=== PATIENT | male | born 1980 | race Caucasian/White ===

== ENCOUNTER 2024-07-07 18:31 | Emergency (ER) | payer BC ==
[2024-07-07] MEDS: Ondansetron 4 MG/2 ML SDV IVPUSH STA (19:12)
[2024-07-07] MEDS: Morphine 4 MG/ML Syringe IVPUSH STA ×2 (19:12→20:22)
[2024-07-07] MEDS: Piperacillin/Tazobactam 4.5 GM in Sodium Chloride 0.9% 100 ML IV STA (19:14)
[2024-07-07 19:35] LABS: BASOPHILS ABSOLUTE AUTO 0.02 K/uL (0.00-0.20); BASOPHILS PERCENT AUTO 0.3 % (0.0-1.0); EOSINOPHILS ABSOLUTE AUTO 0.03 K/uL (0.00-0.45); EOSINOPHILS PERCENT AUTO 0.5 % (0.0-6.0); HEMATOCRIT 43.5 % (42.0-52.0); HEMOGLOBIN 14.6 g/dL (14.0-18.0); IMMATURE GRAN ABSOLUTE AUTO 0.01 K/uL (0.00-0.05); IMMATURE GRAN PERCENT AUTO 0.2 % (0.0-0.4); LYMPHOCYTES ABSOLUTE AUTO 1.08 K/uL (1.00-4.80); LYMPHOCYTES PERCENT AUTO 17.1 % (24.0-44.0); MEAN CORPUSCULAR HEMOGLOBIN 29.1 pg (28.0-32.0); MEAN CORPUSCULAR HGB CONC 33.6 g/dL (32.0-36.0); MEAN CORPUSCULAR VOLUME 86.7 fL (83.0-99.0); MONOCYTES ABSOLUTE AUTO 0.44 K/uL (0.00-0.80); NEUTROPHILS ABSOLUTE AUTO 4.74 K/uL (1.80-7.70); NEUTROPHILS PERCENT AUTO 74.9 % (41.0-71.0); PLATELET COUNT,PLT 171 K/uL (150-400); RED BLOOD CELL COUNT 5.02 M/uL (4.52-5.90); WHITE BLOOD CELL COUNT,WBC 6.32 K/uL (3.9-11.3)
[2024-07-07 19:46] LABS: INR 1.02 (0.86-1.11)
[2024-07-07 19:59] LABS: A/G RATIO 1.4 (0.9-1.6); ALBUMIN 4.6 g/dL (3.4-5.0); BILIRUBIN TOTAL 2.2 mg/dL (0.2-1.0); CALCIUM 9.7 mg/dL (8.5-10.1); CARBON DIOXIDE,CO2 28.1 mmol/L (21.0-32.0); CREATININE 0.9 mg/dL (0.8-1.3); EST CRCL DRUG DOSING (CG) 122.07 mL/min; POTASSIUM,K 3.8 mmol/L (3.5-5.1)
[2024-07-07 20:01] LABS: LACTIC ACID 1.7 mmol/L (0.4-2.0); MAGNESIUM 1.7 mg/dL (1.8-2.4)
[2024-07-07] MEDS: Ketorolac 30 MG/ML SDV IVPUSH STA (20:22)
[2024-07-07] MEDS: Magnesium Sulfate/Water Premix 2 GM in Premix Bag 1 BAG IV STA (21:26)
[2024-07-07 22:31] LABS: APPEARANCE,URINE SLT CLOUDY; BILIRUBIN,URINE NEGATIVE (NEGATIVE); COLOR,URINE YELLOW; GLUCOSE,URINE NEGATIVE (NEGATIVE); KETONES,URINE 40 mg/dL (NEGATIVE); LEUKOCYTE ESTERASE,URINE NEGATIVE (NEGATIVE); NITRITE,URINE NEGATIVE (NEGATIVE); OCCULT BLOOD,URINE NEGATIVE (NEGATIVE); PH,URINE 5.5 (5.0-8.0); PROTEIN,URINE NEGATIVE (NEGATIVE)
[2024-07-07] MEDS: Magnesium Sulfate/Water Premix 50 ML ONE (23:31)
[2024-07-08] MEDS: oxyCODONE 5 MG Tab PO STA (00:07)
[2024-07-08 00:10] VITALS: BP 117/68; PULSE 59
[2024-07-08] MEDS: Iopamidol 755 Mg/ML 100 ML Bottle IVPUSH ONE (07:38)
== END 2024-07-08 00:09 | disposition home or self-care (01) ==
LOC: MW.ED 18:31
DX: K59.00 Constipation, unspecified (principal); K80.20 Calculus of gallbladder without cholecystitis without obstruction; E83.42 Hypomagnesemia; R79.89 Other specified abnormal findings of blood chemistry; Z88.8 Allergy status to other drugs, medicaments and biological substances; Z75.8 Other problems related to medical facilities and other health care
CPT/HCPCS: 36415; 74177; 76705; 80053; 81003; 83605; 83690; 83735; 84484; 85025; 85610; 87040; 93005; 96365; 96367; 96375; 96376; 99284; A9270; J1885; J2270; J2405; J2543; J3475; J3490; Q9967; 93010; 99285

== ENCOUNTER 2024-07-14 12:17 | Day surgery (SDC) | payer BC ==
[2024-07-14] MEDS ORDERED: Propofol 200 MG/20 ML SDV ONE (12:28)
[2024-07-14] MEDS ORDERED: dexmedeTOMIDine HCl 200 MCG/2 ML SDV ONE (12:29)
[2024-07-14] MEDS: Lactated Ringers 1,000 ML IV SCH (12:50)
[2024-07-14] MEDS ORDERED: Lactated Ringers 1,000 ML IV SCH (14:45)
[2024-07-14 15:00] VITALS: BP 112/72; PULSE 57
== END 2024-07-14 15:06 | disposition home or self-care (01) ==
LOC: MW.SDS 12:17
PROVIDERS: ATTEND Surgery
DX: K29.50 Unspecified chronic gastritis without bleeding (principal); Z98.84 Bariatric surgery status; Z87.891 Personal history of nicotine dependence
CPT/HCPCS: 43239; J2704; J7120; J3490

== ENCOUNTER 2024-07-29 19:44 | Emergency (ER) | payer BC ==
[2024-07-29 20:22] LABS: BASOPHILS ABSOLUTE AUTO 0.03 K/uL (0.00-0.20); BASOPHILS PERCENT AUTO 0.6 % (0.0-1.0); EOSINOPHILS ABSOLUTE AUTO 0.13 K/uL (0.00-0.45); EOSINOPHILS PERCENT AUTO 2.5 % (0.0-6.0); HEMATOCRIT 41.3 % (42.0-52.0); HEMOGLOBIN 13.7 g/dL (14.0-18.0); IMMATURE GRAN ABSOLUTE AUTO 0.01 K/uL (0.00-0.05); IMMATURE GRAN PERCENT AUTO 0.2 % (0.0-0.4); LYMPHOCYTES ABSOLUTE AUTO 1.49 K/uL (1.00-4.80); LYMPHOCYTES PERCENT AUTO 28.4 % (24.0-44.0); MEAN CORPUSCULAR HEMOGLOBIN 29.1 pg (28.0-32.0); MEAN CORPUSCULAR HGB CONC 33.2 g/dL (32.0-36.0); MEAN CORPUSCULAR VOLUME 87.7 fL (83.0-99.0); MEAN PLATELET VOLUME 12.6 fL (9.4-12.4); MONOCYTES ABSOLUTE AUTO 0.35 K/uL (0.00-0.80); MONOCYTES PERCENT AUTO 6.7 % (0.0-8.0); NEUTROPHILS ABSOLUTE AUTO 3.23 K/uL (1.80-7.70); NEUTROPHILS PERCENT AUTO 61.6 % (41.0-71.0); PLATELET COUNT,PLT 179 K/uL (150-400); RED BLOOD CELL COUNT 4.71 M/uL (4.52-5.90); WHITE BLOOD CELL COUNT,WBC 5.24 K/uL (3.9-11.3)
[2024-07-29 20:38] VITALS: BP 133/81; PULSE 71
[2024-07-29 20:59] LABS: A/G RATIO 1.2 (0.9-1.6); ALANINE AMINOTRANSFERASE,ALT 88 IU/L (14-63); ALBUMIN 4.2 g/dL (3.4-5.0); ALKALINE PHOSPHATASE 132 U/L (46-116); ASPARTATE AMNIOTRANSFERASE,AST 136 IU/L (15-37); BILIRUBIN TOTAL 1.2 mg/dL (0.2-1.0); BLOOD UREA NITROGEN,BUN 15 mg/dL (7.0-18.0); CALCIUM 9.2 mg/dL (8.5-10.1); CARBON DIOXIDE,CO2 29.5 mmol/L (21.0-32.0); CHLORIDE,CL 103 mmol/L (98-107); ESTIMATED GFR 97 mL/min (>60); GLUCOSE RANDOM 96 mg/dL (74-106); LIPASE 38 U/L (16-77); PROTEIN TOTAL,TP 7.7 g/dL (6.4-8.2); SODIUM,NA 141 mmol/L (136-148)
[2024-07-29] MEDS: Ondansetron 4 MG Tab.DIS PO ONE (21:09)
[2024-07-29] MEDS: Acetaminophen/HYDROcodone 325-5 MG Tab PO ONE (21:09)
== END 2024-07-29 22:17 | disposition home or self-care (01) ==
LOC: MW.ED 19:44
DX: K80.50 Calculus of bile duct without cholangitis or cholecystitis without obstruction (principal); E66.9 Obesity, unspecified; Z88.1 Allergy status to other antibiotic agents
CPT/HCPCS: 36415; 80053; 83690; 85025; 99284; A9270

== ENCOUNTER 2024-08-04 06:38 | Day surgery (SDC) | payer BC ==
[~2024-08-04 06:38] MED LIST: ceFAZolin 2 GM in Sodium Chloride 0.9% 50 ML IV ONE
[2024-08-04] MEDS ORDERED: Metoclopramide 10 MG/2 ML SDV IVPUSH PRN (07:03)
[2024-08-04] MEDS ORDERED: Albuterol 0.083% 2.5 MG/3 ML Neb Soln NEB PRN (07:03)
[2024-08-04] MEDS ORDERED: fentaNYL 50 MCG/ML SDV IVPUSH PRN (07:03)
[2024-08-04] MEDS ORDERED: Naloxone 0.4 MG/ML SDV IVPUSH PRN (07:03)
[2024-08-04] MEDS ORDERED: Phenylephrine HCl In 0.9% NaCl 1 MG/10 ML Syringe IVPUSH PRN (07:03)
[2024-08-04] MEDS ORDERED: Water For Injection, Sterile 20 ML ONE (07:14)
[2024-08-04] MEDS ORDERED: Rocuronium Bromide 50 MG/5 ML Syringe ONE (07:14)
[2024-08-04] MEDS ORDERED: dexmedeTOMIDine HCl 200 MCG/2 ML SDV ONE (07:14)
[2024-08-04] MEDS ORDERED: fentaNYL 100 MCG/2 ML SDV ONE (07:14)
[2024-08-04] MEDS ORDERED: Propofol 200 MG/20 ML SDV ONE (07:14)
[2024-08-04] MEDS ORDERED: ceFAZolin 1 GM Vial ONE (07:16)
[2024-08-04] MEDS ORDERED: Bupivacaine 0.5% 10 ML SDV ONE (07:16)
[2024-08-04] MEDS ORDERED: Bupivacaine 0.25% 30 ML SDV ONE (07:19)
[2024-08-04] MEDS ORDERED: Ropivacaine 0.5% 5 MG/ML 30 ML SDV ONE (07:19)
[2024-08-04] MEDS ORDERED: Desflurane 240 ML Bottle ONE (07:23)
[2024-08-04] MEDS: Lactated Ringers 1,000 ML IV SCH (07:30)
[2024-08-04] MEDS: Scopalamine 1mg/3day Transdermal Patch TRDERM PRN (07:31)
[2024-08-04] MEDS ORDERED: ceFAZolin 2 GM Vial ONE (08:01)
[2024-08-04] MEDS ORDERED: Magnesium Sulfate (4.06 MEQ/ML) 5 GM/10 ML SDV ONE (08:18)
[2024-08-04] MEDS ORDERED: Ketamine HCL/NACL, ISO-OSM 50 MG/5 ML Syringe ONE (08:42)
[2024-08-04] MEDS ORDERED: Dexamethasone 4 MG/ML 5 ML MDV ONE (08:42)
[2024-08-04] MEDS ORDERED: Ondansetron 4 MG/2 ML SDV ONE (08:42)
[2024-08-04] MEDS ORDERED: Sugammadex Sodium 200 MG/2 ML VIAL IV ONE (08:51)
[2024-08-04] MEDS ORDERED: Ketorolac 30 MG/ML SDV ONE (08:51)
[2024-08-04] MEDS ORDERED: Acetaminophen/HYDROcodone 325-5 MG Tab PO PRN (09:46)
[2024-08-04] MEDS ORDERED: Morphine 4 MG/ML Syringe IVPUSH PRN (09:46)
[2024-08-04] MEDS ORDERED: Lactated Ringers 1,000 ML IV SCH (10:00)
[2024-08-04] MEDS: Ondansetron 4 MG/2 ML SDV IVPUSH PRN (10:02)
[2024-08-04] MEDS: HYDROmorphone 1 MG/ML Syringe IVPUSH PRN (10:03)
[2024-08-04] MEDS: Morphine 2 MG/ML SYRINGE IVPUSH PRN (10:31)
[2024-08-04] MEDS: HYDROmorphone 2 MG/ML Syringe IVPUSH ONE ×2 (11:20→11:34)
[2024-08-04 13:19] VITALS: BP 160/90; PULSE 62
== END 2024-08-04 12:20 | disposition home or self-care (01) ==
LOC: MW.SDS 06:38
PROVIDERS: ATTEND Surgery
DX: K80.10 Calculus of gallbladder with chronic cholecystitis without obstruction (principal); J45.909 Unspecified asthma, uncomplicated; G47.33 Obstructive sleep apnea (adult) (pediatric); E66.01 Morbid (severe) obesity due to excess calories; Z68.34 Body mass index [BMI] 34.0-34.9, adult; Z88.1 Allergy status to other antibiotic agents
CPT/HCPCS: 47562; 64488; A9270; J0131; J0665; J0690; J1100; J1171; J1885; J2270; J2405; J2704; J2795; J3010; J3490; J7120; 00790

== ENCOUNTER 2024-08-06 18:56 | Observation (INO) | payer BC ==
[2024-08-06] MEDS: Ondansetron 4 MG/2 ML SDV IVPUSH ONE (19:27)
[2024-08-06] MEDS: Morphine 4 MG/ML Syringe IVPUSH ONE (19:28)
[2024-08-06] MEDS: Sodium Chloride 0.9% 1,000 ML IV ONE (19:30)
[2024-08-06 19:32] LABS: BASOPHILS ABSOLUTE AUTO 0.04 K/uL (0.00-0.20); BASOPHILS PERCENT AUTO 0.5 % (0.0-1.0); EOSINOPHILS ABSOLUTE AUTO 0.08 K/uL (0.00-0.45); EOSINOPHILS PERCENT AUTO 0.9 % (0.0-6.0); HEMOGLOBIN 13.9 g/dL (14.0-18.0); IMMATURE GRAN ABSOLUTE AUTO 0.02 K/uL (0.00-0.05); IMMATURE GRAN PERCENT AUTO 0.2 % (0.0-0.4); LYMPHOCYTES ABSOLUTE AUTO 2.64 K/uL (1.00-4.80); MEAN CORPUSCULAR HEMOGLOBIN 28.8 pg (28.0-32.0); MEAN CORPUSCULAR HGB CONC 32.3 g/dL (32.0-36.0); MEAN PLATELET VOLUME 12.6 fL (9.4-12.4); MONOCYTES ABSOLUTE AUTO 0.85 K/uL (0.00-0.80); NEUTROPHILS ABSOLUTE AUTO 4.89 K/uL (1.80-7.70); NEUTROPHILS PERCENT AUTO 57.4 % (41.0-71.0); PLATELET COUNT,PLT 192 K/uL (150-400); RED BLOOD CELL COUNT 4.83 M/uL (4.52-5.90); WHITE BLOOD CELL COUNT,WBC 8.52 K/uL (3.9-11.3)
[2024-08-06 19:47] LABS: A/G RATIO 1.1 (0.9-1.6); ALBUMIN 4.2 g/dL (3.4-5.0); BILIRUBIN TOTAL 1.4 mg/dL (0.2-1.0); CALCIUM 9.6 mg/dL (8.5-10.1); CARBON DIOXIDE,CO2 30.7 mmol/L (21.0-32.0); CREATININE 1.1 mg/dL (0.8-1.3); EST CRCL DRUG DOSING (CG) 99.88 mL/min; POTASSIUM,K 4.1 mmol/L (3.5-5.1); PROTEIN TOTAL,TP 7.9 g/dL (6.4-8.2)
[2024-08-06] MEDS: HYDROmorphone 1 MG/ML Syringe IVPUSH ONE (20:17)
[2024-08-06] MEDS ORDERED: Sodium Chloride 0.9% 20 ML SDV IV PRN (22:05)
[2024-08-06] MEDS ORDERED: diphenhydrAMINE 50 MG/ML SDV IVPUSH PRN (22:05)
[2024-08-06] MEDS ORDERED: Sodium Chloride 0.9% 2.5 ML Syringe FLUSH PRN (22:05)
[2024-08-06] MEDS ORDERED: Ondansetron 4 MG/2 ML SDV IVPUSH PRN (22:05)
[2024-08-06] MEDS ORDERED: Sodium Chloride 0.9% 10 ML Syringe FLUSH PRN (22:05)
[2024-08-06] MEDS: Sodium Chloride 0.9% 1,000 ML IV SCH (23:34)
[2024-08-06] MEDS: Bisacodyl 5 MG Tab PO SCH (23:39)
[2024-08-06] MEDS: Ketorolac 30 MG/ML SDV IVPUSH SCH (23:44)
[2024-08-06] MEDS: Pantoprazole 80 MG in Sodium Chloride 0.9% 10 ML IVPUSH ONE (23:47)
[2024-08-07] MEDS: Acetaminophen/oxyCODONE 325-5 MG Tab PO PRN (00:54)
[2024-08-07] MEDS: HYDROmorphone 2 MG/ML Syringe IVPUSH PRN (03:02)
[2024-08-07] MEDS: Iopamidol 755 Mg/ML 100 ML Bottle IVPUSH ONE (08:05)
[2024-08-07 08:34] LABS: HEMATOCRIT 36.1 % (42.0-52.0); HEMOGLOBIN 12.3 g/dL (14.0-18.0); MEAN CORPUSCULAR HEMOGLOBIN 29.6 pg (28.0-32.0); MEAN CORPUSCULAR HGB CONC 34.1 g/dL (32.0-36.0); MEAN CORPUSCULAR VOLUME 86.8 fL (83.0-99.0); MEAN PLATELET VOLUME 12.3 fL (9.4-12.4); PLATELET COUNT,PLT 173 K/uL (150-400); RED BLOOD CELL COUNT 4.16 M/uL (4.52-5.90); WHITE BLOOD CELL COUNT,WBC 7.15 K/uL (3.9-11.3)
[2024-08-07 09:01] LABS: A/G RATIO 1.1 (0.9-1.6); ALBUMIN 3.5 g/dL (3.4-5.0); BILIRUBIN TOTAL 2.2 mg/dL (0.2-1.0); CALCIUM 8.5 mg/dL (8.5-10.1); CARBON DIOXIDE,CO2 29.2 mmol/L (21.0-32.0); CREATININE 1.1 mg/dL (0.8-1.3); EST CRCL DRUG DOSING (CG) 99.88 mL/min; POTASSIUM,K 3.8 mmol/L (3.5-5.1); PROTEIN TOTAL,TP 6.7 g/dL (6.4-8.2)
[2024-08-07 10:26] VITALS: BP 157/86; PULSE 66
[2024-08-07] MEDS ORDERED: Multivitamin Tab PO SCH (21:00)
== END 2024-08-07 11:15 ==
LOC: MW.ED 18:56 → MW.MS 21:56 → MW.ED 22:18
PROVIDERS: ADMIT Surgery; ATTEND Surgery
DX: G89.18 Other acute postprocedural pain (principal); R10.12 Left upper quadrant pain; Z90.49 Acquired absence of other specified parts of digestive tract; E66.9 Obesity, unspecified
CPT/HCPCS: 36415; 74018; 74177; 80053; 83690; 85025; 85027; A9270; J1171; J1885; J2270; J2405; J2470; J7030; Q9967